=== PATIENT | female | born 1980 | race Caucasian/White ===

== ENCOUNTER → 2018-01-18 | Day surgery (SDC) | payer OTHER ==
[~2018-01-18] MED LIST: IV RINGERS,LACTATED 1000ML 1,000 ML IV SCH; LORA10TA3 PO; MIDAZOLAM HCL/PF 5 MG/5 ML VIAL. IV ONE; MIDAZOLAM HCL/PF 5 MG/5 ML VIAL. ONE; MULT1TAB52 PO; diphenhydrAMINE 50 MG/ML VIAL IV ONE; diphenhydrAMINE 50 MG/ML VIAL ONE; fentaNYL PF VIAL 100 MCG/2 ML VIAL IV ONE; fentaNYL PF VIAL 100 MCG/2 ML VIAL ONE
[2018-01-18 16:57] LABS: U PREG PATIENT NEGATIVE (NEG)
[2018-01-18 17:30] VITALS: BP 115/67
--- NOTE | 2018-01-19 02:51 | CONS ---
DATE OF CONSULTATION: 01/18/2018 REFERRING PHYSICIAN: Dr. Roz Rodriguez. HISTORY OF PRESENT ILLNESS: A 37-year-old female whose past medical history is significant for epigastric pain and allergic rhinitis, is seen in further evaluation of abdominal pain. Previous hepatobiliary imaging including ultrasound of the gallbladder and HIDA did reveal ejection fraction 98% with mild symptom reproduction. Does have risk factors for reflux, which are positive for alcohol and caffeine, but negative for nicotine. Family history is positive for gallbladder disease with grandmother. Noted food intolerances and noted history of peptic ulcer disease. With continued symptoms, upper endoscopy is recommended. PAST MEDICAL HISTORY: Allergic rhinitis. ALLERGIES: None. MEDICATIONS: Loratadine, multivitamins. FAMILY HISTORY: Significant of hypertension. SOCIAL HISTORY: She is a nonsmoker, but social drinker. REVIEW OF SYSTEMS: Per records. PHYSICAL EXAMINATION: GENERAL: Reveals a well-nourished, well-developed female. VITAL SIGNS: Temperature is 97, pulse 85, respirations 18. HEENT: Reveals normocephalic and atraumatic head. Pupils and extraocular muscles are not tested. Sclerae icteric. NECK: Supple. LUNGS: Clear. CARDIOVASCULAR: Reveals S1, S2 without S3, S4 or appreciable murmur. ABDOMEN: Reveals soft abdomen, normal bowel sounds without appreciable hepatosplenomegaly with epigastric tenderness to deep palpation. EXTREMITIES: Reveals no cyanosis, clubbing, or edema. IMPRESSION: Epigastric pain, etiology to be determined. Differential includes chronic cholecystitis, colitis, celiac and/or peptic ulcer disease. We will therefore recommend upper endoscopy to further assess. Risks and benefits of procedure including risk of hemorrhage and perforation during the operation were discussed. The patient is willing to proceed at this time. ZURDO HOUSER MD DR: MARIA LUISA/king JOB#: [id number] / [id number]
== END | disposition home or self-care (01) ==
LOC: ENDOS 15:33
PROVIDERS: ATTEND Internal Medicine Gastroenterology
DX: K29.50 Unspecified chronic gastritis without bleeding (principal); Z79.899 Other long term (current) drug therapy; Z82.49 Family history of ischemic heart disease and other diseases of the circulatory system; Z72.89 Other problems related to lifestyle
CPT/HCPCS: 43235; 81025; J1200; J2250; J3010